=== PATIENT | male | born 1995 | race Caucasian/White ===

== ENCOUNTER 2017-06-05 20:33 | Inpatient (IN) | payer OTHER ==
[~2017-06-05] VITALS: Ht 177.8 cm; Wt 95.4 kg
[2017-06-05 20:53] LABS: MCH 31.4 PG (29.0-34.0); MCHC 34.7 G/DL (30.0-36.0); MCV 90.4 FL (86-99); PLATELET COUNT 293 K/uL (156-360); RBC DIS.WIDTH-CV 12.3 % (11.8-14.6); RBC DIS.WIDTH-SD 40.8 % (39-53); RED BLOOD COUNT 5.42 M/uL (4.00-5.50); WHITE BLOOD COUNT 10.9 K/uL (4.1-10.2)
[2017-06-05 21:02] LABS: CHLORIDE 105 mEq/L (99-109); SODIUM 140 mEq/L (136-147)
[2017-06-05 21:04] LABS: GLUCOSE 97 mg/dL (70-99)
[2017-06-05 21:05] LABS: ANION GAP 16 MEQ/L (2-14)
[2017-06-05 21:07] LABS: GFR ESTIMATE (CALCULATED) > 59 mL/min/; SERUM ETHYL ALCOHOL < 10 mg/dL
[2017-06-05 21:08] LABS: UREA NITROGEN (BUN) 9 mg/dL (9-23)
[2017-06-05 21:10] LABS: AMPHETAMINE NEGATIVE (500 ng/mL); BARBITURATES NEGATIVE (200 ng/mL); BENZODIAZEPINES NEGATIVE (150 ng/mL); COCAINE NEGATIVE (150 ng/mL); INTERNAL CONTROLS VALID? YES; METHADONE NEGATIVE (200 ng/mL); METHAMPHETAMINE NEGATIVE (500 ng/mL); OPIATES (MORPHINE) NEGATIVE (100 ng/mL); OXYCODONE NEGATIVE (100 ng/mL); PHENCYCLIDINE NEGATIVE (25 ng/mL); PROPOXYPHENE NEGATIVE (300 ng/mL); THC CANNABINOIDS NEGATIVE (50 ng/mL); TRICYCLIC ANTIDEPRESSANTS NEGATIVE (300 ng/mL)
[2017-06-05] MEDS ORDERED: RIZATRIPTAN10 MG PO (22:21)
[2017-06-05] MEDS ORDERED: ONDANSETRON ODT8 MG PO (22:23)
[2017-06-05 23:58] VITALS: BP 135/85
[2017-06-06 07:41] VITALS: BP 128/62
[2017-06-06 15:29] VITALS: BP 103/64
[2017-06-07 07:54] VITALS: BP 136/70
[2017-06-07 15:34] VITALS: BP 112/67
[2017-06-08 07:25] VITALS: BP 88/48
[2017-06-08 07:48] VITALS: BP 118/74
[2017-06-08 15:02] VITALS: BP 151/75
[2017-06-08 20:25] VITALS: BP 137/79
[2017-06-09 07:49] VITALS: BP 104/50
[2017-06-09 15:37] VITALS: BP 116/68
[2017-06-10 07:39] VITALS: BP 98/60
[2017-06-10 15:56] VITALS: BP 115/62
[2017-06-11 07:55] VITALS: BP 11/51
[2017-06-11 15:27] VITALS: BP 122/61
[2017-06-12 08:02] VITALS: BP 112/62
[2017-06-12] MEDS ORDERED: TRAZODONE HCL50 MG PO (08:53)
[2017-06-12] MEDS ORDERED: SERTRALINE HCL100 MG PO (08:53)
== END 2017-06-12 10:39 | disposition home or self-care (01) | DRG 885 ==
LOC: EME 20:33 → EDOF 22:29 → 1WEST 22:29 → ENRESERV 23:41 → 1WEST 23:56
DX: F32.2 Major depressive disorder, single episode, severe without psychotic features (principal); R45.851 Suicidal ideations; K21.9 Gastro-esophageal reflux disease without esophagitis
CPT/HCPCS: 80048; 82607; 82746; 84443; 85027; 90837; 97150 GO; 97165 GO; 99281; 99285; G0480